=== PATIENT | female | born 1935 | race Caucasian/White ===

== ENCOUNTER 2021-03-31 16:22 | Inpatient (IN) | payer OTHER, MEDICARE ==
[2021-03-31 17:00] VITALS: BMI 31.2
[2021-03-31] MEDS ORDERED: SODIUM CHLORIDE 2,177 ML IV ONE (17:33)
[2021-03-31 17:53] LABS: HEMATOCRIT 40.2 % (32.4-45.2); HEMOGLOBIN 12.6 GM/dL (10.7-15.3); MCHC 31.4 g/dl (32.0-36.0); MEAN CELL VOLUME 92.3 fl (80-96); MEAN PLT VOLUME 9.1 fl (7.5-11.1); PLATELET COUNT 471 10^3/uL (134-434); RBC 4.36 M/mm3 (3.60-5.2); RDW 16.6 % (11.6-15.6); WHITE BLOOD COUNT 14.9 K/mm3 (4.0-10.0)
[2021-03-31 17:59] LABS: INR 1.28 (0.83-1.09)
[2021-03-31 18:03] LABS: VENOUS BASE EXCESS 3.9 mmol/L (-2-2); VENOUS O2 SATURATION 37.5 % (70-80); VENOUS PCO2 54.2 mmHg (38-52); VENOUS PH 7.365 (7.310-7.410)
[2021-03-31 18:20] LABS: CALCIUM 11.6 mg/dL (8.5-10.1); PLATELET ESTIMATE INCREASED
[2021-03-31 18:21] LABS: ALBUMIN 2.9 g/dl (3.4-5.0); BLOOD UREA NITROGEN 103.2 mg/dL (7-18)
[2021-03-31 18:22] LABS: EPI CELLS 14 /uL (0-25.1); HYALINE CASTS 3 /uL (0-3.1); URINE APPEARANCE CLOUDY; URINE BACTERIA 1323 /uL (0-1359); URINE BILIRUBIN NEGATIVE (NEGATIVE); URINE COLOR YELLOW; URINE GLUCOSE (UA) NEGATIVE (NEGATIVE); URINE KETONE NEGATIVE (NEGATIVE); URINE LEUK ESTERASE 1+ (NEGATIVE); URINE NITRITE NEGATIVE (NEGATIVE); URINE PROTEIN NEGATIVE (NEGATIVE); URINE RBC 8 /uL (0-23.9); URINE WBC 21 /uL (0-25.8)
[2021-03-31 18:24] LABS: CREATININE 1.8 mg/dL (0.55-1.3)
[2021-03-31 18:26] LABS: BILIRUBIN,TOTAL 0.8 mg/dL (0.2-1); TOT PROT 7.2 g/dl (6.4-8.2)
[2021-03-31 18:31] LABS: LACTIC ACID 2.9 mmol/L (0.4-2.0)
[2021-03-31 18:42] LABS: MAGNESIUM 2.5 mg/dL (1.8-2.4)
[2021-03-31] MEDS ORDERED: CEFTRIAXONE 1,000 MG in DEXTROSE 5%-WATER - 50 ML IVPB ONE (18:50)
[2021-03-31] MEDS ORDERED: CEFTRIAXONE 1 GM/50 ML BAG ONE (18:58)
[2021-03-31] MEDS ORDERED: ACETAMINOPHEN 1000 MG/100 ML VIAL IVPB ONE (20:00)
[2021-03-31] MEDS ORDERED: ACETAMINOPHEN INJECTION 100 ML IVPB ONE (20:02)
[2021-03-31] MEDS ORDERED: SODIUM CHLORIDE 0.9% 1000 ML INFUS.BAG IV ONE (21:19)
[2021-03-31 21:29] LABS: CALCIUM 9.9 mg/dL (8.5-10.1)
[2021-03-31 21:30] LABS: BLOOD UREA NITROGEN 92.9 mg/dL (7-18)
[2021-03-31 21:33] LABS: CREATININE 1.5 mg/dL (0.55-1.3)
[2021-03-31] MEDS ORDERED: SODIUM CHLORIDE 0.45% 1,000 ML IV SCH (22:00)
[2021-04-01 07:13] LABS: CALCIUM 10.1 mg/dL (8.5-10.1)
[2021-04-01 07:14] LABS: ALBUMIN 2.7 g/dl (3.4-5.0); BLOOD UREA NITROGEN 74.4 mg/dL (7-18)
[2021-04-01 07:17] LABS: BASO % 0.3 % (0-2.0); CREATININE 1.3 mg/dL (0.55-1.3); HEMATOCRIT 38.2 % (32.4-45.2); HEMOGLOBIN 12.1 GM/dL (10.7-15.3); LYMPH % 16.5 % (8-40); MCH 29.6 pg (25.7-33.7); MCHC 31.7 g/dl (32.0-36.0); MEAN CELL VOLUME 93.3 fl (80-96); MONO % 5.8 % (3.8-10.2); NEUT % 74.4 % (42.8-82.8); PLATELET COUNT 374 10^3/uL (134-434); RBC 4.09 M/mm3 (3.60-5.2); RDW 16.3 % (11.6-15.6); WHITE BLOOD COUNT 11.3 K/mm3 (4.0-10.0)
[2021-04-01 07:19] LABS: BILIRUBIN,TOTAL 0.7 mg/dL (0.2-1); TOT PROT 6.5 g/dl (6.4-8.2)
[2021-04-01] MEDS ORDERED: DEXTROSE 5%-WATER - 1,000 ML with POTASSIUM CHLORIDE 20 MEQ IV SCH (13:45)
[2021-04-01] MEDS: POTASSIUM CHLORIDE 20 MEQ in DEXTROSE 5%-WATER - 1,000 ML IV SCH (17:00)
[2021-04-01] MEDS ORDERED: CITALOPRAM HYDROBROMIDE 10 MG TABLET ONE (18:04)
[2021-04-01] MEDS: CITALOPRAM HYDROBROMIDE 10 MG TABLET PO SCH (18:05)
[2021-04-01] MEDS: EZETIMIBE 10 MG TABLET (FP) PO SCH (18:05)
[2021-04-02] MEDS: CITALOPRAM HYDROBROMIDE 10 MG TABLET PO SCH ×2 (00:45→09:14)
[2021-04-02] MEDS: RIVAROXABAN 15 MG TABLET PO SCH ×2 (00:46→18:17)
[2021-04-02] MEDS: POTASSIUM CHLORIDE 20 MEQ in DEXTROSE 5%-WATER - 1,000 ML IV SCH ×2 (02:30→18:17)
[2021-04-02 06:42] LABS: BASO % 0.5 % (0-2.0); EOS % 2.9 % (0-4.5); HEMATOCRIT 35.8 % (32.4-45.2); HEMOGLOBIN 11.6 GM/dL (10.7-15.3); LYMPH % 18.3 % (8-40); MCH 30.2 pg (25.7-33.7); MCHC 32.5 g/dl (32.0-36.0); MEAN CELL VOLUME 92.9 fl (80-96); MEAN PLT VOLUME 8.9 fl (7.5-11.1); MONO % 6.4 % (3.8-10.2); NEUT % 71.9 % (42.8-82.8); PLATELET COUNT 359 10^3/uL (134-434); RBC 3.86 M/mm3 (3.60-5.2); RDW 15.6 % (11.6-15.6); WHITE BLOOD COUNT 11.6 K/mm3 (4.0-10.0)
[2021-04-02 08:09] LABS: CALCIUM 10.7 mg/dL (8.5-10.1)
[2021-04-02 08:13] LABS: CREATININE 0.8 mg/dL (0.55-1.3)
[2021-04-02 08:36] LABS: BLOOD UREA NITROGEN 48.4 mg/dL (7-18)
[2021-04-02] MEDS: EZETIMIBE 10 MG TABLET (FP) PO SCH (09:14)
[2021-04-03] MEDS: POTASSIUM CHLORIDE 20 MEQ in DEXTROSE 5%-WATER - 1,000 ML IV SCH ×2 (05:09→17:28)
[2021-04-03] MEDS: EZETIMIBE 10 MG TABLET (FP) PO SCH (09:36)
[2021-04-03] MEDS: CITALOPRAM HYDROBROMIDE 10 MG TABLET PO SCH (09:36)
[2021-04-03] MEDS: RIVAROXABAN 15 MG TABLET PO SCH (17:29)
[2021-04-04] MEDS: POTASSIUM CHLORIDE 20 MEQ in DEXTROSE 5%-WATER - 1,000 ML IV SCH ×2 (05:16→13:49)
[2021-04-04] MEDS: CITALOPRAM HYDROBROMIDE 10 MG TABLET PO SCH (09:18)
[2021-04-04] MEDS: EZETIMIBE 10 MG TABLET (FP) PO SCH (09:18)
[2021-04-04 15:03] LABS: BASO % 0.5 % (0-2.0); EOS % 3.9 % (0-4.5); HEMATOCRIT 33.1 % (32.4-45.2); LYMPH % 22.2 % (8-40); MCH 29.7 pg (25.7-33.7); MCHC 33.2 g/dl (32.0-36.0); MEAN CELL VOLUME 89.4 fl (80-96); MEAN PLT VOLUME 8.5 fl (7.5-11.1); MONO % 5.1 % (3.8-10.2); NEUT % 68.3 % (42.8-82.8); PLATELET COUNT 264 10^3/uL (134-434); RDW 15.3 % (11.6-15.6); WHITE BLOOD COUNT 9.7 K/mm3 (4.0-10.0)
[2021-04-04 15:26] LABS: CALCIUM 9.6 mg/dL (8.5-10.1)
[2021-04-04 15:30] LABS: CREATININE 0.7 mg/dL (0.55-1.3)
[2021-04-04 15:31] LABS: BILIRUBIN,TOTAL 0.6 mg/dL (0.2-1); TOT PROT 5.3 g/dl (6.4-8.2)
[2021-04-04 15:33] LABS: BLOOD UREA NITROGEN 17.6 mg/dL (7-18)
[2021-04-04] MEDS: RIVAROXABAN 15 MG TABLET PO SCH (17:29)
[2021-04-05] MEDS: POTASSIUM CHLORIDE 20 MEQ in DEXTROSE 5%-WATER - 1,000 ML IV SCH ×2 (02:01→04:51)
[2021-04-05] MEDS: EZETIMIBE 10 MG TABLET (FP) PO SCH (09:50)
[2021-04-05] MEDS: CITALOPRAM HYDROBROMIDE 10 MG TABLET PO SCH (09:50)
[2021-04-05 10:16] LABS: BASO % 0.3 % (0-2.0); EOS % 3.7 % (0-4.5); HEMATOCRIT 37.6 % (32.4-45.2); HEMOGLOBIN 12.4 GM/dL (10.7-15.3); LYMPH % 20.1 % (8-40); MCH 30.1 pg (25.7-33.7); MEAN CELL VOLUME 91.3 fl (80-96); MEAN PLT VOLUME 9.3 fl (7.5-11.1); MONO % 4.5 % (3.8-10.2); NEUT % 71.4 % (42.8-82.8); PLATELET COUNT 284 10^3/uL (134-434); RBC 4.12 M/mm3 (3.60-5.2); RDW 15.6 % (11.6-15.6); WHITE BLOOD COUNT 10.3 K/mm3 (4.0-10.0)
[2021-04-05 10:49] LABS: BLOOD UREA NITROGEN 12.4 mg/dL (7-18)
[2021-04-05 10:51] LABS: ALBUMIN 2.4 g/dl (3.4-5.0); CREATININE 0.7 mg/dL (0.55-1.3)
[2021-04-05 10:55] LABS: BILIRUBIN,TOTAL 0.7 mg/dL (0.2-1)
[2021-04-05] MEDS: RIVAROXABAN 15 MG TABLET PO SCH (17:17)
[2021-04-05] MEDS: METOPROLOL TARTRATE 50 MG TABLET (FP) PO SCH (22:30)
[2021-04-05] MEDS: MIRTAZAPINE 15 MG TABLET (FP) PO SCH (22:30)
[2021-04-06] MEDS: METOPROLOL TARTRATE 50 MG TABLET (FP) PO SCH ×2 (10:25→22:07)
[2021-04-06] MEDS: EZETIMIBE 10 MG TABLET (FP) PO SCH (10:25)
[2021-04-06] MEDS: CITALOPRAM HYDROBROMIDE 10 MG TABLET PO SCH (10:25)
[2021-04-06] MEDS: RIVAROXABAN 15 MG TABLET PO SCH (17:41)
[2021-04-06] MEDS: MIRTAZAPINE 15 MG TABLET (FP) PO SCH (22:07)
[2021-04-07 09:09] VITALS: TEMP 98.6
[2021-04-07] MEDS: EZETIMIBE 10 MG TABLET (FP) PO SCH (09:11)
[2021-04-07] MEDS: METOPROLOL TARTRATE 50 MG TABLET (FP) PO SCH (09:12)
[2021-04-07] MEDS: CITALOPRAM HYDROBROMIDE 10 MG TABLET PO SCH (09:12)
[2021-04-07 13:14] VITALS: BP 90/58; PULSE 82
== END 2021-04-07 14:55 | DRG 641 ==
LOC: JER 16:22 → JERBED 17:36 → J4S 04-01 19:52
PROVIDERS: ADMIT Internal Medicine; ATTEND Family Medicine
DX: E86.0 Dehydration (principal); N17.9 Acute kidney failure, unspecified; R62.7 Adult failure to thrive; Z68.31 Body mass index [BMI] 31.0-31.9, adult; E11.9 Type 2 diabetes mellitus without complications; F03.90 Unspecified dementia, unspecified severity, without behavioral disturbance, psychotic disturbance, mood disturbance, and anxiety; I48.91 Unspecified atrial fibrillation; R41.841 Cognitive communication deficit; E87.0 Hyperosmolality and hypernatremia; R94.5 Abnormal results of liver function studies; D72.829 Elevated white blood cell count, unspecified
CPT/HCPCS: 36415; 71045-TC-FY; 74230-TC-FY; 76775-TC; 80048; 80053; 81003; 82570; 82803; 83605; 83735; 83935; 84300; 84484; 85025; 85610; 85730; 87040; 87086; 87186; 92611-GN; 93005; 93010; 97116-GP; 97161-GP; 99285-25; C9803; J0131; U0003; U0005